=== PATIENT | female | born 1945 | race Caucasian/White ===

== ENCOUNTER 2016-05-26 11:40 | Inpatient (IN) ==
[2016-05-26] MEDS ORDERED: *HR* HYDROcodone/Acet 5/325 mg TABLET PO PRN (14:06)
--- NOTE | 2016-05-26 18:15 | Internal Med History&Physical ---
Date of Encounter: 05/26/16 Time of Encounter: 19:24 Assessment and Plan (1) Status post right knee replacement Current visit: Yes Status: Acute she had her right knee replaced on 05/23/2016. she is here for pt/ot/rt (2) Arthritis of knee, right Current visit: No Status: Acute she just had her right knee replaced (3) COPD (chronic obstructive pulmonary disease) Current visit: No Status: Chronic Qualifiers: COPD type: unspecified COPD Qualified Code(s): J44.9 - Chronic obstructive pulmonary disease, unspecified (4) HTN (hypertension) Current visit: No Status: Chronic will continue home medication has been stable Qualifiers: Hypertension type: essential hypertension Qualified Code(s): I10 - Essential (primary) hypertension (5) Tobacco abuse Current visit: No Status: Chronic discussed smoking cessation. she had 4 brothers with lung cancer Internal Medicine - H&P: HPI Chief complaint: here for rehab History of present illness: Ms. Nelson is a 71 year old female Who had a right total knee replacement with: On 05/23/2016. She is here for rehabilitation. Her pain as a 5 out of 10. She does not have any other complaints. Her bowels are working okay she has no shortness of breath no chest pain no palpitations she has not been dizzy she does not have any urinary symptoms. Prior to her knee replacement she was living at home with her daughters she does not go up and down stairs she has a bathroom on the first floor. She was driving some prior to admission. Past Med Surg Social Fam HX - Past Medical History Medical history: arthritis (rheumatoid), COPD, GERD, hypertension Psychiatric history: anxiety, depression - Past Surgical History Surgical History: hysterectomy - Social History Smoking Status: Current every day smoker Smokeless Tobacco Status: No Alcohol use: none Drug use: none - Family History Father Living Status: Cause of : cancer Hx Family Cancer: Yes (leukemia) Mother Living Status: Hx Family Musculoskeletal Disorders: Yes (arthritis) Sister Hx Family Cardiac Disorders: Yes (heart disease) Internal Medicine - H&P: Meds Albuterol Sulfate [Albuterol Inhaler] 2 puff IH Q4HR PRN 04/15/15 [History] Atenolol [Tenormin] 50 mg PO DAILY #0 04/15/15 [History] Citalopram [CeleXA] 20 mg PO HS 04/15/15 [History] Aspirin 81 mg PO DAILY 05/23/16 [History] Diclofenac Sodium [Voltaren] 75 mg PO BID 05/23/16 [History] Ferrous Sulfate [Iron] 325 mg PO HS 05/23/16 [History] Pantoprazole Sodium [Protonix] 40 mg PO DAILY PRN 05/23/16 [History] Losartan [Cozaar] 25 mg PO DAILY 05/26/16 [History] Allergies Oxycodone Adverse Reaction (Verified 05/23/16 11:38) Confusion All Systems PM: A 10-system review of systems was performed and is negative for pertinent findings except as documented above in the HPI. - Constitutional Constitutional: no fever(s), no malaise - EENT Eyes: no change in vision - Cardiovascular Cardiovascular ROS IM: no chest pain, no dyspnea, no palpitations, no syncope - Respiratory Respiratory: cough (occ prior to admission), no dyspnea - Gastrointestinal Gastrointestinal: no abdominal pain, no constipation, no loose stools, no melena , no nausea, no vomiting - Genitourinary Genitourinary: no dysuria, no urinary frequency, no urinary incontinence - Integumentary Integumentary IM: no pruritus, no rash - Neurological Neurological ROS: no tingling - Constitutional Vitals: Temp Pulse Resp BP Pulse Ox 97.8 F 67 16 119/77 96 05/26/16 16:53 05/26/16 16:53 05/26/16 16:53 05/26/16 16:53 05/26/16 16:53 General appearance: Present: A&O X 3, no acute distress, answers questions appropriately - Head Head exam: Present: atraumatic, normocephalic - Neck Neck exam general surgery: Present: normal inspection, supple, trachea midline. Absent: lymphadenopathy, tenderness - Respiratory Respiratory exam: Present: CTAB - Cardiovascular Cardiovascular exam: Present: RRR, +S1, +S2 - GI/Abdominal GI/Abdominal exam: Present: normal bowel sounds, soft, no peritoneal signs. Absent: guarding, rebound, tenderness - Incison Incision: Present: clean and dry, intact - Skin Skin exam: Present: dry, warm. Absent: rash
[2016-05-26] MEDS: *HR* HYDROcodone/Acet 10/325 mg TABLET PO PRN (18:54)
[2016-05-26 21:39] LABS: Bilirubin,Urine Negative (Negative); Blood,Urine Negative (Negative); Clarity,Urine Slightly Cloudy (Clear); Color,Urine Yellow (Yellow); Glucose,Urine (UA) Normal (Normal); Ketones,Urine Negative (Negative); Leukocyte Esterase,Urine Negative (Negative); Nitrite,Urine Negative (Negative); PH,Urine 6.5 pH Units (5.0-8.0); Protein,Urine Negative (Neg-Trace)
[2016-05-26] MEDS: Diclofenac Sodium 75 MG TABLET PO SCH (22:14)
[2016-05-27] MEDS: *HR* HYDROcodone/Acet 10/325 mg TABLET PO PRN ×4 (01:26→21:00)
[2016-05-27] MEDS: *HR* Enoxaparin 40 MG/0.4 ML SYRINGE SQ SCH (06:10)
[2016-05-27 06:11] LABS: Basophils # 0.1 K/mcL (0.0-0.2); Basophils % 0.8 %; Eosinophils # 0.6 K/mcL (0.0-0.6); Eosinophils % 8.2 %; Hematocrit 33.5 % (35.3-44.9); Hemoglobin 10.6 g/dL (11.5-15.4); Immature Granulocytes % 0.4 % (0-4); Lymphocytes # 1.9 K/mcL (0.6-4.6); Mean Corpuscular HGB Conc 31.6 g/dL (31.6-35.5); Mean Corpuscular Hemoglobin 29.9 pg (28.0-33.3); Mean Corpuscular Volume 94.6 fL (83.0-100.0); Mean Platelet Volume 11.1 fL (9.4-12.4); Monocytes # 0.7 K/mcL (0.0-1.3); Monocytes % 9.2 %; Neutrophils # 4.4 K/mcL (1.6-8.9); Platelet Count 315 K/mcL (140-400); Red Blood Count 3.54 M/mcL (3.82-4.97); Red Cell Distribution Width 14.3 % (11.5-14.5); Segmented Neutrophils % 56.4 %
[2016-05-27 06:18] LABS: BUN/Creatinine Ratio 25 (6-26); Blood Urea Nitrogen 17 mg/dL (7-20); Calcium 9.4 mg/dL (8.6-10.8); Carbon Dioxide 20 mEq/L (19-29); Chloride 109 mEq/L (98-109); Glucose 87 mg/dL (70-99); Osmolality,Calculated 285 (280-300); Potassium 4.4 mEq/L (3.5-4.5); Sodium 137 mEq/L (136-145); eGFR For African Americans > 60 (> 60); eGFR For Non-African Americans > 60 (> 60)
--- NOTE | 2016-05-27 08:28 | Internal Med Progress Note ---
Date of Encounter: 05/27/16 Time of Encounter: 08:28 - Assessment and plan (1) Status post right knee replacement Current Visit: Yes Status: Acute Assessment and plan: she is here for pt/ot/rt. d/c will be when she meets her rehab goals and is safe to go home (2) Arthritis of knee, right Current Visit: No Status: Acute Assessment and plan: s/p right tkr (3) COPD (chronic obstructive pulmonary disease) Current Visit: No Status: Chronic Assessment and plan: stable Qualifiers: COPD type: unspecified COPD Qualified Code(s): J44.9 - Chronic obstructive pulmonary disease, unspecified (4) HTN (hypertension) Current Visit: No Status: Chronic Assessment and plan: stable continue home medication Qualifiers: Hypertension type: essential hypertension Qualified Code(s): I10 - Essential (primary) hypertension (5) Tobacco abuse Current Visit: No Status: Chronic Assessment and plan: cessation discussed - Subjective Interval history: she is doing well this am. pain is ok got up and walked to breakfast. appetite is good ate almost all of it. no sob, no cp, no dizzy, bowels and bladder ok. - Constitutional Vitals: Temp Pulse Resp BP Pulse Ox 97.7 F 64 18 111/66 99 05/27/16 06:57 05/27/16 06:57 05/27/16 06:57 05/27/16 06:57 05/27/16 06:57 General appearance: Present: A&O X 3, no acute distress, answers questions appropriately - Head Head exam: Present: atraumatic, normocephalic - Neck Neck exam general surgery: Present: normal inspection, trachea midline. Absent : lymphadenopathy - Respiratory Respiratory exam: Present: CTAB - Cardiovascular Cardiovascular exam: Present: RRR, +S1, +S2 - GI/Abdominal GI/Abdominal exam: Present: normal bowel sounds, soft, no peritoneal signs. Absent: distended, guarding, tenderness - Extremities Exam Extremities exam: Present: warm. Absent: pedal edema - Incison Incision: Present: clean and dry, intact - Skin Skin exam: Present: dry, warm Internal Medicine: Result - Labs CBC & Chem 7: 05/27/16 05:40 05/27/16 05:40 Labs: Short CBC 05/27/16 Range/Units 05:40 WBC 7.7 (4.3-11.1) K/mcL Hgb 10.6 L (11.5-15.4) g/dL Hct 33.5 L (35.3-44.9) % Plt Count 315 (140-400) K/mcL Neutrophils # 4.4 (1.6-8.9) K/mcL BMP 05/27/16 05:40 Sodium 137 Potassium 4.4 Chloride 109 Carbon Dioxide 20 BUN 17 Creatinine 0.67 Glucose 87 Calcium 9.4 Urine 05/26/16 Range/Units 20:14 Urine Color Yellow (Yellow) Urine Clarity Slightly Cloudy A (Clear) Urine pH 6.5 (5.0-8.0) pH Units Ur Specific [place] 1.020 (1.010-1.025) Urine Protein Negative (Neg-Trace) mg/dL Urine Glucose (UA) Normal (Normal) mg/dL Consult Discharge Plan - Plan Referrals: Natalie Mckenzie CNP [Advanced Practice Nurse] - 06/02/16 1:00 pm Ruth Carlson MD [Primary Care Provider] - ()
[2016-05-27] MEDS: Diclofenac Sodium 75 MG TABLET PO SCH ×2 (08:39→20:59)
--- NOTE | 2016-05-27 17:37 | Discharge Summary ---
Date of Encounter: 05/31/16 Time of Encounter: 08:20 - Discharge Diagnosis (1) Status post right knee replacement Priority: Primary Status: Acute Comments: She had her right knee replaced on May 23 at [facility] with [facility]. An uncomplicated postop course she came here for rehabilitation PT OT RT. She progressed quickly she met her goals she was felt safe to be discharged home. She will be sent home on Monday05/28/16. Follow-up scheduled with her primary care provider Natalie Mckenzie in the office. She was given hydrocodone from the office chart. Her family came to the office and picked up the prescription for her to go home. (2) Arthritis of knee, right Priority: Secondary Status: Acute Comments: Diagnosis post right knee replacement she is meeting all her goals she is going home she will do outpatient physical therapy (3) COPD (chronic obstructive pulmonary disease) Priority: Secondary Status: Chronic Comments: Stable here. Qualifiers: COPD type: unspecified COPD Qualified Code(s): J44.9 - Chronic obstructive pulmonary disease, unspecified (4) HTN (hypertension) Priority: Secondary Status: Chronic Comments: Stable on her home medications. Qualifiers: Hypertension type: essential hypertension Qualified Code(s): I10 - Essential (primary) hypertension (5) Tobacco abuse Priority: Secondary Status: Chronic Comments: Cessation has been discussed with patient. (6) DVT prophylaxis Priority: Secondary Status: Acute Comments: sHe was on Lovenox while she was here she will be sent home on aspirin. - Discharge Medications Prescriptions: Aspirin/Calcium Carbonate/Mag [Aspirin Buffered 325 mg Tab] 325 mg PO DAILY #30 tablet Home Medications: Albuterol Sulfate [Albuterol Inhaler] 2 puff IH Q4HR PRN 04/15/15 [History] Atenolol [Tenormin] 50 mg PO DAILY #0 04/15/15 [History] Citalopram [CeleXA] 20 mg PO HS 04/15/15 [History] Aspirin 81 mg PO DAILY 05/23/16 [History] Diclofenac Sodium [Voltaren] 75 mg PO BID 05/23/16 [History] Ferrous Sulfate [Iron] 325 mg PO HS 05/23/16 [History] Pantoprazole Sodium [Protonix] 40 mg PO DAILY PRN 05/23/16 [History] Losartan [Cozaar] 25 mg PO DAILY 05/26/16 [History] Aspirin/Calcium Carbonate/Mag [Aspirin Buffered 325 mg Tab] 325 mg PO DAILY #30 tablet 05/27/16 [Rx] HYDROcodone/Acet 5/325 mg [[place] 5-325 mg] 1 tab PO Q6HR PRN #0 tablet 05/27/16 [Rx] Allergies/Adverse Reactions: Allergies Oxycodone Adverse Reaction (Verified 05/23/16 11:38) Confusion Date of admission: 05/26/16 11:40 Primary care physician: Ruth Carlson, Consults: 05/26/16 14:08 Consult to Occupational Therapy [CONS] Routine Comment: Evaluate, develop and implement POC Consult to Physical Therapy [CONS] Routine Comment: Evaluate, develop and implement POC Consult to Recreational Therapy [CONS] Routine Comment: Evaluate, develop and implement POC - Patient Status Disposition: Home, Self-Care Condition: Good Overall status at discharge: patient is progressing back to baseline - Discharge Instructions Instructions: Total Knee Replacement (DC), Chronic Obstructive Pulmonary Disease (DC), Chronic Hypertension (DC) Follow Up With: Roel Lucio MD [Partnered Physician] - 06/21/16 9:40 am Ruth Carlson MD [Primary Care Provider] - () Ingrid Wynn PAC [Physician [employer]] - 06/02/16 8:45 am Natalie Mckenzie CNP [Advanced Practice Nurse] - 06/02/16 1:00 pm - Diet and Activity Activity: ambulate only with your walker, as per physical therapy Diet: low fat, low cholesterol, low salt diet Interval History: She presented from [place] after she had a right knee replacement. She had an uncomplicated postop course she progressed well she met all her goals it was felt that she was safe to be discharged to her home environment she will be discharged tomorrow May 28. Referred for outpatient physical therapy she will continue using her walker. Her pain was controlled with the hydrocodone she was given a written prescription from the office her family came out to the office and picked up the prescription on Monday. Her hypertension and COPD remained stable during her admission. Received Lovenox while an inpatient for DVT prophylaxis she will be sent home on by mouth aspirin for DVT prophylaxis. I discussed smoking cessation with her. Not interested at this time. Hospital course: Ms. Nelson is a 71 year old female - Time Spent with Patient Total time spent providing and/or coordinating discharge services: - Constitutional Vitals: Temp Pulse Resp BP Pulse Ox 97.7 F 64 18 111/66 99 05/27/16 06:57 05/27/16 06:57 05/27/16 06:57 05/27/16 06:57 05/27/16 06:57 General appearance: Present: A&O X 3, no acute distress, answers questions appropriately
[2016-05-27] MEDS: Aspirin 81 MG TAB.CHEW PO SCH (20:59)
[2016-05-28] MEDS: *HR* Enoxaparin 40 MG/0.4 ML SYRINGE SQ SCH (06:24)
[2016-05-28] MEDS: *HR* HYDROcodone/Acet 10/325 mg TABLET PO PRN (06:25)
[2016-05-28 07:46] VITALS: BP 124/68
--- NOTE | 2016-05-28 08:15 | Internal Med Progress Note ---
Date of Encounter: 05/28/16 Time of Encounter: 08:00 - Assessment and plan (1) DVT prophylaxis Current Visit: Yes Status: Acute Assessment and plan: Doing well. Plan is for discharge on 1 adult aspirin and one baby aspirin as I discussed with Dr. Carlson yesterday. (2) Status post right knee replacement Current Visit: Yes Status: Acute Assessment and plan: She has done well with therapy. She is eager to go home today. (3) COPD (chronic obstructive pulmonary disease) Current Visit: No Status: Chronic Assessment and plan: Pulmonary symptoms are stable. O2 sat is 95%. Qualifiers: COPD type: unspecified COPD Qualified Code(s): J44.9 - Chronic obstructive pulmonary disease, unspecified (4) HTN (hypertension) Current Visit: No Status: Chronic Assessment and plan: Blood pressure is at goal on her current medications. Qualifiers: Hypertension type: essential hypertension Qualified Code(s): I10 - Essential (primary) hypertension - Time Spent With Patient 25 - 35 minutes - Subjective Interval history: Patient has no complaints this morning. She tells me she is eating well. She says her pain is well-controlled. She denies shortness of breath or chest discomfort. She feels her therapy has progressed well and that she is ready for discharge home today. Her daughters picked up her hydrocodone from the pharmacy already. - Constitutional Vitals: Temp Pulse Resp BP Pulse Ox 98.1 F 61 16 124/68 95 05/28/16 07:45 05/28/16 07:45 05/27/16 19:00 05/28/16 07:45 05/28/16 07:45 General appearance: Present: A&O X 3, pleasant, no acute distress, answers questions appropriately Exam: Consuming her breakfast well. Vital signs reviewe and are within normal limits, afebrile, BP at goal. - Respiratory Respiratory exam: Present: CTAB. Absent: accessory muscle use, rales, rhonchi, wheezes - Cardiovascular Cardiovascular exam: Present: RRR, +S1, +S2. Absent: diastolic murmur, gallop, rubs, systolic murmur Internal Medicine: Result - Labs CBC & Chem 7: 05/27/16 05:40 05/27/16 05:40 Consult Discharge Plan - Plan Instructions: Chronic Obstructive Pulmonary Disease (DC), Chronic Hypertension (DC) Referrals: Ruth Carlson MD [Primary Care Provider] - () Natalie Mckenzie CNP [Advanced Practice Nurse] - 06/02/16 1:00 pm Prescriptions: Aspirin/Calcium Carbonate/Mag [Aspirin Buffered 325 mg Tab] 325 mg PO DAILY #30 tablet
[2016-05-28] MEDS: Aspirin 81 MG TAB.CHEW PO SCH (08:36)
[2016-05-28] MEDS: Diclofenac Sodium 75 MG TABLET PO SCH (08:36)
== END 2016-05-28 11:45 | disposition home or self-care (01) | DRG 561 ==
LOC: INPGRE 11:40
PROVIDERS: ADMIT Family Medicine; ATTEND Family Medicine

== ENCOUNTER 2021-02-25 07:55 | Inpatient (IN) ==
[2021-02-25 08:20] LABS: Basophils % 0.2 %; Eosinophils # 0.1 K/mcL (0.0-0.6); Eosinophils % 0.8 %; Hematocrit 43.9 % (35.3-44.9); Hemoglobin 13.2 g/dL (11.5-15.4); Immature Granulocytes % 0.6 % (0-4); Lymphocytes # 1.3 K/mcL (0.6-4.6); Lymphocytes % 7.2 %; Mean Corpuscular HGB Conc 30.1 g/dL (31.6-35.5); Mean Corpuscular Hemoglobin 28.3 pg (28.0-33.3); Mean Platelet Volume 11.2 fL (9.4-12.4); Monocytes # 0.8 K/mcL (0.0-1.3); Monocytes % 4.4 %; Platelet Count 551 K/mcL (140-400); Red Blood Count 4.67 M/mcL (3.82-4.97); Red Cell Distribution Width 17.2 % (11.5-14.5); Segmented Neutrophils % 86.8 %; White Blood Count 17.7 K/mcL (4.3-11.1)
[2021-02-25 08:30] LABS: INR 1.2; Neutrophils # 15.4 K/mcL (1.6-8.9); Prothrombin Time 13.7 Seconds (9.4-12.1)
[2021-02-25 08:33] LABS: Activated Partial Thrombo Time 34.5 Seconds (26.0-36.0)
[2021-02-25 08:37] LABS: Troponin I < 0.03 ng/mL (< 0.04)
[2021-02-25] MEDS ORDERED: Ondansetron 4 MG/2 ML VIAL IVP ONE (08:38)
[2021-02-25] MEDS ORDERED: Ketorolac 30 MG/ML VIAL IVP ONE (08:38)
[2021-02-25 08:39] LABS: BUN/Creatinine Ratio 10 (6-26); Blood Urea Nitrogen 6 mg/dL (8-23); Calcium 8.9 mg/dL (8.6-10.3); Carbon Dioxide 22 mEq/L (23-29); Chloride 106 mEq/L (98-107); Glucose 96 mg/dL (70-105); Osmolality,Calculated 287 (280-300); Potassium 3.5 mEq/L (3.5-5.1); Sodium 140 mEq/L (136-145); eGFR For African Americans > 60 (> 60); eGFR For Non-African Americans > 60 (> 60)
[2021-02-25 08:40] LABS: Albumin 3.3 g/dL (3.5-5.7); Albumin/Globulin Ratio 0.8 (1.1-2.2); Bilirubin,Direct 0.3 mg/dL (0.0-0.2); Bilirubin,Indirect 0.3 mg/dL (0.0-1.0); Bilirubin,Total 0.6 mg/dL (0.3-1.0); Globulin 4.2 g/dL (2.4-3.5); Total Protein 7.5 g/dL (6.4-8.9)
[2021-02-25] MEDS ORDERED: Isovue-370 500 ML BOTTLE IVP ONE ×3 (08:47→19:29)
[2021-02-25] MEDS ORDERED: Azithromycin 500 MG in D5% in Water 250 ML IVPB ONE (10:20)
[2021-02-25] MEDS ORDERED: 0.9 % Sodium Chloride PF in SYR 10 ML VIAL IVP ONE (11:49)
[2021-02-25] MEDS ORDERED: Sennosides/Docusate Sodium TABLET PO PRN (11:49)
[2021-02-25] MEDS ORDERED: Naloxone 0.4 MG/ML INJ IVP PRN (11:49)
[2021-02-25] MEDS ORDERED: Ipratropium/Albuterol Neb 3 ML IH PRN (11:49)
[2021-02-25] MEDS ORDERED: predniSONE 20 MG TABLET PO SCH (11:49)
[2021-02-25] MEDS: Albuterol 2.5 MG/3 ML NEBULIZER IH SCH ×2 (12:40→12:42)
[2021-02-25] MEDS ORDERED: methylPREDNISolone 125 MG/2 ML VIAL IVP ONE (12:41)
[2021-02-25] MEDS ORDERED: 0.9 % Sodium Chloride 500 ML IVC ONE (12:55)
[2021-02-25] MEDS: 0.9 % Sodium Chloride 1,000 ML IVC SCH ×2 (13:40→18:46)
[2021-02-25] MEDS: *HR* HYDROcodone/Acet 10/325 mg TABLET PO PRN ×2 (14:56→23:30)
[2021-02-26] MEDS ORDERED: Piperacillin/Tazobactam 3.375 GM in 0.9 % Sodium Chloride Mini Bag 100 ML IVPB SCH (00:15)
[2021-02-26 00:18] VITALS: BP 161/76; PULSE 102; RESP 17; TEMP 99.4; O2SAT 93
[2021-02-26] MEDS ORDERED: *HR* Enoxaparin 40 MG/0.4 ML SYRINGE SQ SCH (06:00)
[2021-02-26] MEDS ORDERED: Levothyroxine 25 MCG TABLET PO SCH (06:30)
[2021-02-26] MEDS ORDERED: atenoloL 50 MG TABLET PO SCH (09:00)
[2021-02-26] MEDS ORDERED: Aspirin 81 MG TAB.CHEW PO SCH (09:00)
[2021-02-26] MEDS ORDERED: Loratadine 10 MG TABLET PO SCH (09:00)
[2021-02-26] MEDS ORDERED: Azithromycin 500 MG in 0.9 % Sodium Chloride 250 ML IVPB SCH (12:00)
[2021-02-27] MEDS ORDERED: *HR* Methotrexate 2.5 MG TABLET PO SCH (09:00)
== END 2021-02-26 02:40 | disposition home or self-care (01) ==
LOC: EMEROOGRE 07:55 → INPGRE 11:30
PROVIDERS: ADMIT Family Medicine; ATTEND Family Medicine

== ENCOUNTER 2021-05-12 08:36 | Inpatient (IN) ==
[2021-05-12 10:20] LABS: Basophils % 0.1 %; Immature Granulocytes % 0.7 % (0-4); Lymphocytes # 0.5 K/mcL (0.6-4.6); Mean Corpuscular HGB Conc 31.7 g/dL (31.6-35.5); Mean Corpuscular Hemoglobin 30.2 pg (28.0-33.3); Mean Corpuscular Volume 95.3 fL (83.0-100.0); Mean Platelet Volume 10.9 fL (9.4-12.4); Monocytes # 0.1 K/mcL (0.0-1.3); Monocytes % 0.7 %; Platelet Count 395 K/mcL (140-400); Red Cell Distribution Width 22.2 % (11.5-14.5); Segmented Neutrophils % 94.5 %
[2021-05-12 10:24] LABS: Neutrophils # 11.3 K/mcL (1.6-8.9)
[2021-05-12 10:34] LABS: BUN/Creatinine Ratio 20 (6-26); Blood Urea Nitrogen 11 mg/dL (8-23); Calcium 9.1 mg/dL (8.6-10.3); Carbon Dioxide 21 mEq/L (23-29); Chloride 107 mEq/L (98-107); Glucose 91 mg/dL (70-105); Osmolality,Calculated 287 (280-300); Potassium 3.4 mEq/L (3.5-5.1); Sodium 139 mEq/L (136-145); eGFR For African Americans > 60 (> 60); eGFR For Non-African Americans > 60 (> 60)
[2021-05-12 10:38] LABS: Troponin I < 0.03 ng/mL (< 0.04)
[2021-05-12] MEDS: *HR* HYDROcodone/Acet 10/325 mg TABLET PO PRN (20:43)
[2021-05-13] MEDS ORDERED: Levothyroxine 25 MCG TABLET PO SCH (04:15)
[2021-05-13] MEDS: *HR* Enoxaparin 40 MG/0.4 ML SYRINGE SQ SCH ×2 (04:16→04:17)
[2021-05-13] MEDS: *HR* HYDROcodone/Acet 10/325 mg TABLET PO PRN ×2 (04:16→14:31)
[2021-05-13 08:22] LABS: Eosinophils % 0.5 %; Hematocrit 40.8 % (35.3-44.9); Hemoglobin 12.5 g/dL (11.5-15.4); Immature Granulocytes % 0.5 % (0-4); Lymphocytes # 0.9 K/mcL (0.6-4.6); Lymphocytes % 11.3 %; Mean Corpuscular HGB Conc 30.6 g/dL (31.6-35.5); Mean Corpuscular Volume 98.1 fL (83.0-100.0); Mean Platelet Volume 10.9 fL (9.4-12.4); Monocytes # 0.2 K/mcL (0.0-1.3); Monocytes % 1.9 %; Neutrophils # 6.9 K/mcL (1.6-8.9); Platelet Count 371 K/mcL (140-400); Red Blood Count 4.16 M/mcL (3.82-4.97); Red Cell Distribution Width 22.3 % (11.5-14.5); Segmented Neutrophils % 85.8 %
[2021-05-13 08:35] LABS: BUN/Creatinine Ratio 16 (6-26); Blood Urea Nitrogen 9 mg/dL (8-23); Calcium 8.9 mg/dL (8.6-10.3); Carbon Dioxide 24 mEq/L (23-29); Chloride 106 mEq/L (98-107); Glucose 68 mg/dL (70-105); Osmolality,Calculated 283 (280-300); Potassium 3.5 mEq/L (3.5-5.1); Sodium 138 mEq/L (136-145); eGFR For African Americans > 60 (> 60); eGFR For Non-African Americans > 60 (> 60)
[2021-05-13] MEDS ORDERED: atenoloL 50 MG TABLET PO SCH (09:00)
[2021-05-13] MEDS ORDERED: Aspirin 81 MG TAB.CHEW PO SCH (09:00)
[2021-05-13] MEDS ORDERED: Loratadine 10 MG TABLET PO SCH (09:00)
[2021-05-14 07:33] VITALS: BP 130/83; PULSE 89; RESP 19; TEMP 97.7; O2SAT 90
== END 2021-05-13 14:55 | disposition short-term general hospital (02) | DRG 308 ==
LOC: EMEROOGRE 08:36 → INPGRE 11:40
PROVIDERS: ADMIT Family Medicine; ATTEND Family Medicine